=== PATIENT | male | born 1990 | race Caucasian/White ===

== ENCOUNTER 2017-09-17 11:28 | Emergency (ER) | payer OTHER ==
[2017-09-17] MEDS ORDERED: Sodium Chloride 0.9% 10 ML Syringe FLUSH PRN (11:51)
--- NOTE | 2017-09-17 12:28 | EDM.PDOC ---
ED HPI GENERAL MEDICAL PROBLEM - General Chief Complaint: Chest Pain Stated Complaint: LEFT SIDE CHEST PAIN X 4 DAYS Time Seen by Provider: 09/17/17 11:37 Source of Information: Reports: Patient History Limitations: Reports: No Limitations - History of Present Illness INITIAL COMMENTS - FREE TEXT/NARRATIVE: The patient presents with left sided chest pain. This started about 4 days ago. The pain is sharp. The pain is made worse by movement and taking a deep breath. He also has some shortness of breath with it. He has no fever, chills , cough, congestion, runny nose, abdominal pain, nausea or vomiting. He has no history of heart trouble he has no history of heart problems in his family. He does not smoke but he does chew. Onset: Gradual Duration: Day(s): (4) Location: Reports: Chest Quality: Reports: Sharp Severity: Moderate Improves with: Reports: Immobilization Worsens with: Reports: Breathing, Movement Associated Symptoms: Reports: Chest Pain, Shortness of Breath. 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 Left Chest Pain Score (Numeric/FACES): 0 - Related Data Allergies Allergy/AdvReac Type Severity Reaction Status Date / Time No Known Allergies Allergy Verified 09/17/17 11:42 Home Meds: Home Meds LORazepam [Ativan] 1 mg PO TID PRN 09/17/17 [History] Naproxen [Naprosyn] 500 mg PO Q12HR PRN #30 tablet 09/17/17 [Rx] Past Medical History Psychiatric History: Reports: Anxiety Social & Family History - Tobacco Use Smoking Status *Q: Current Every Day Smoker Years of Tobacco use: 8 Packs/Tins Daily: 1 - Caffeine Use Caffeine Use: Reports: Coffee, Energy Drinks, Soda - Recreational Drug Use Recreational Drug Use: Yes Recreational Drug Type: Reports: Marijuana/Hashish Other Recreational Drug Type: last use was about 1 yr ago ED ROS GENERAL - Review of Systems Review Of Systems: See Below Constitutional: Reports: No Symptoms HEENT: Reports: No Symptoms Respiratory: Reports: Shortness of Breath Cardiovascular: Reports: Chest Pain Endocrine: Reports: No Symptoms GI/Abdominal: Reports: No Symptoms : Reports: No Symptoms Musculoskeletal: Reports: No Symptoms Neurological: Reports: No Symptoms ED EXAM, GENERAL - Physical Exam Exam: See Below Exam Limited By: No Limitations General Appearance: Alert, No Apparent Distress Ears: Normal External Exam Nose: Normal Inspection Head: Atraumatic, Normocephalic Neck: Normal Inspection Respiratory/Chest: No Respiratory Distress, Lungs Clear, Normal Breath Sounds Cardiovascular: Regular Rate, Rhythm, No Edema, No Murmur GI/Abdominal: Soft, Non-Tender, No Organomegaly, No Mass Back Exam: Normal Inspection Extremities: Normal Inspection Neurological: Alert, Oriented, No Motor/Sensory Deficits EKG INTERPRETATION EKG Date: 09/17/17 Time: 11:43 Rhythm: Other (sinus tachycardia) Rate (Beats/Min): 101 [place]: Normal P-Wave: Present QRS: Normal ST-T: Normal QT: Normal Course - Vital Signs Last Recorded V/S: Last Vital Signs Temp 98.0 F 09/17/17 11:46 Pulse 105 H 09/17/17 11:46 Resp 20 09/17/17 11:46 BP 158/97 H 09/17/17 11:46 Pulse Ox 100 09/17/17 11:46 - Orders/Labs/Meds Orders: Active Orders 24 hr Category Date Time Status Cardiac Monitoring [RC] . DIRECTED Care 09/17/17 11:51 Active EKG Documentation Completion [RC] STAT Care 09/17/17 11:51 Active Peripheral IV Care [RC] . DIRECTED Care 09/17/17 11:52 Active Chest 2V [CR] Stat Exams 09/17/17 11:52 Taken Sodium Chloride 0.9% [Saline Flush] Med 09/17/17 11:51 Active 10 ml FLUSH ASDIRECTED PRN Peripheral IV Insertion Adult [OM.PC] Stat Oth 09/17/17 11:51 Ordered Medication Orders Sodium Chloride (Saline Flush) 10 ml FLUSH ASDIRECTED PRN PRN Reason: Keep Vein Open Last Admin: 09/17/17 12:07 Dose: 10 ml Labs: Laboratory Tests 09/17/17 09/17/17 09/17/17 Range/Units 11:40 11:40 11:40 WBC 12.12 H (4.23-9.07) K/mm3 RBC 5.71 (4.63-6.08) M/mm3 Hgb 16.5 (13.7-17.5) gm/L Hct 47.8 (40.1-51.0) % MCV 83.7 (79.0-92.2) fl MCH 28.9 (25.7-32.2) pg MCHC 34.5 (32.2-35.5) g/dl RDW Std Deviation 36.1 (35.1-43.9) fL Plt Count 293 (163-337) K/mm3 MPV 9.8 (9.4-12.3) fl Neut % (Auto) 70.3 H (34.0-67.9) % Lymph % (Auto) 14.9 L (21.8-53.1) % [place] % (Auto) 7.8 (5.3-12.2) % Eos % (Auto) 6.4 (0.8-7.0) Baso % (Auto) 0.4 (0.1-1.2) % Neut # (Auto) 8.51 H (1.78-5.38) K/mm3 Lymph # (Auto) 1.81 (1.32-3.57) K/mm3 [place] # (Auto) 0.95 H (0.30-0.82) K/mm3 Eos # (Auto) 0.77 H (0.04-0.54) K/mm3 Baso # (Auto) 0.05 (0.01-0.08) K/mm3 D-Dimer, Quantitative 0.31 (0.19-0.59) mg/L Sodium 142 (136-145) mEq/L Potassium 4.1 (3.5-5.1) mEq/L Chloride 101 (98-107) mEq/L Carbon Dioxide 28 (21-32) mEq/L Anion Gap 17.1 H (5-15) BUN 16 (7-18) mg/dL Creatinine 1.1 (0.7-1.3) mg/dL Est Cr Clr Drug Dosing 109.34 mL/min Estimated GFR (MDRD) > 60 (>60) mL/min BUN/Creatinine Ratio 14.5 (14-18) Glucose 85 (74-106) mg/dL Calcium 9.9 (8.5-10.1) mg/dL Total Bilirubin 0.8 (0.2-1.0) mg/dL AST 22 (15-37) U/L ALT 31 (16-63) U/L Alkaline Phosphatase 77 (46-116) U/L Troponin I < 0.017 (0.00-0.056) ng/mL Total Protein 8.2 (6.4-8.2) g/dl Albumin 4.6 (3.4-5.0) g/dl Globulin 3.6 gm/dL Albumin/Globulin Ratio 1.3 (1-2) Meds: Medications Generic Name Dose Route Start Last Admin Trade Name Freq PRN Reason Stop Dose Admin Sodium Chloride 10 ml 09/17/17 11:51 09/17/17 12:07 Saline Flush FLUSH 10 ml ASDIRECTED PRN Administration Keep Vein Open - Re-Assessments/Exams Free Text/Narrative Re-Assessment/Exam: 09/17/17 12:34 I ordered an IV saline lock, EKG, CXR, and labs. His EKG shows a sinus tachycardia with no acute changes. His CBC and CMP look good. His D-dimer and troponin are negative. 09/17/17 13:09 His CXR looks good. I do not see an infiltrate or a pneumo. It appears he has some pleurisy. I will give him a prescription for naprosyn. Departure - Departure Time of Disposition: 13:10 Disposition: Home, Self-Care 01 Condition: Good Clinical Impression: Pleurisy Prescriptions: Naproxen [Naprosyn] 500 mg PO Q12HR PRN #30 tablet PRN Reason: Pain Referrals: Laurent Hoskins MD [Primary Care Provider] - 1 Week Forms: ED Department Discharge, ED Return to Work/School Form Additional Instructions: Take the naprosyn every 12 hours as needed for pain. Follow up with Dr Jay in 1 wee if not better. Please return if you are worse. - My Orders Last 24 Hours: My Active Orders 09/17/17 11:51 Cardiac Monitoring [RC] . DIRECTED EKG Documentation Completion [RC] STAT Sodium Chloride 0.9% [Saline Flush] 10 ml FLUSH ASDIRECTED PRN Peripheral IV Insertion Adult [OM.PC] Stat 09/17/17 11:52 Peripheral IV Care [RC] . DIRECTED Chest 2V [CR] Stat - Assessment/Plan Last 24 Hours: My Active Orders 09/17/17 11:51 Cardiac Monitoring [RC] . DIRECTED EKG Documentation Completion [RC] STAT Sodium Chloride 0.9% [Saline Flush] 10 ml FLUSH ASDIRECTED PRN Peripheral IV Insertion Adult [OM.PC] Stat 09/17/17 11:52 Peripheral IV Care [RC] . DIRECTED Chest 2V [CR] Stat
--- NOTE | 2017-09-19 07:39 | CR ---
Chest: Two views of the chest were obtained. Comparison: No previous chest x-ray. Heart size and mediastinum are within normal limits. Lungs are clear. Minimal thoracic scoliosis is noted. No acute bony abnormality is appreciated. No pneumothorax is identified. Impression: 1. Incidental finding. Nothing acute is seen on two-view chest x-ray. Diagnostic code #2
== END 2017-09-17 13:50 | disposition home or self-care (01) ==
LOC: JD.ED 11:28
DX: R09.1 Pleurisy (principal); F17.210 Nicotine dependence, cigarettes, uncomplicated
CPT/HCPCS: 36415; 71020; 80053; 84484; 85025; 85379; 93005; 99284; J7050; 93010